=== PATIENT | male | born 2000 | race Caucasian/White ===

== ENCOUNTER 2018-03-09 19:20 | Emergency (ER) | payer MEDICAID ==
[2018-03-09] MEDS: IBUPROFEN 600 MG TAB PO (21:12)
== END 2018-03-09 22:25 | disposition home or self-care (01) ==
LOC: FTE 19:20
DX: J06.9 Acute upper respiratory infection, unspecified (principal); F17.210 Nicotine dependence, cigarettes, uncomplicated
CPT/HCPCS: 87880; 99283